=== PATIENT | male | born 1935 | race Caucasian/White ===

== ENCOUNTER 2018-04-30 23:15 | Inpatient (IN) ==
[2018-04-30] MEDS ORDERED: HYDROCODONE/HOMATROPINE SYRUP 5MG/1.5MG 5ML UDP PO STA (23:50)
[2018-04-30] MEDS ORDERED: ALBUT/IPRATROP 3MG/0.5MG NEB 3 ML VIAL NEB ONE (23:50)
[2018-05-01 00:15] LABS: Basophils # (auto) 0.01 K/uL (0-0.2); Basophils % (auto) 0.1 %; Hematocrit (blood only) 42.7 % (42-52); Hemoglobin 14.5 g/dL (14.0-18.0); Immature Granulocytes # (auto) 0.03 K/uL (0.00-0.02); Immature Granulocytes % (auto) 0.3 %; Lymphocytes # (auto) 0.56 K/uL (1.2-3.4); Lymphocytes % (auto) 5.4 %; Mean Corpuscular Volume 97.9 fL (80-100); Mean Platelet Volume 11.1 fL (7.4-10.4); Monocytes % (auto) 6.8 %; Neutrophils # (auto) 8.99 K/uL (1.4-6.5); Neutrophils % (auto) 87.4 %; Platelet Count 151 K/uL (130-400); RDW Coefficient of Variation 12.8 % (11.5-14.5); RDW Standard Deviation 46.1 fL (36.4-46.3); Red Blood Count 4.36 M/uL (4.7-6.1); White Blood Count 10.29 K/uL (4.8-10.8)
[2018-05-01 00:26] LABS: Partial Thromboplastin Time 27.1 Seconds (21.0-31.0); Prothrombin Time 10.5 Seconds (9.0-12.0)
[2018-05-01 00:34] LABS: Alanine Aminotransferase 41 U/L (12-78); Albumin Level 3.8 gm/dl (3.4-5.0); Aspartate Aminotransferase 49 U/L (15-37); BUN Creatinine Ratio 18.2 (10-20); Blood Urea Nitrogen 27 mg/dl (7-18); Calcium 8.8 mg/dl (8.5-10.1); Carbon Dioxide 25 mmol/L (21-32); Chloride 104 mmol/L (98-107); Creatinine Clr Calc Pharmacy 47.7 ml/min; Est GFR (African American) 50.8; Est GFR (Non-African American) 43.8; Glucose 133 mg/dl (70-99); Potassium 4.3 mmol/L (3.5-5.1); Sodium 136 mmol/L (136-145)
[2018-05-01 00:39] LABS: Alkaline Phosphatase 57 U/L (45-117); Bilirubin,Total 0.2 mg/dl (0.2-1); Globulin 3.8 gm/dl (2.5-4.0); NT Pro B Type Natriuretic Pept 429 pg/ml (0-1800); Total Protein 7.6 gm/dl (6.4-8.2); Troponin I < 0.015 ng/ml (0-0.045)
[2018-05-01] MEDS ORDERED: methylPREDNISolone 125 MG/2 ML VIAL IV STA (01:22)
[2018-05-01] MEDS ORDERED: SODIUM CHLORIDE 0.9% 500 ML IV ONE (01:23)
[2018-05-01] MEDS ORDERED: BENZONATATE 100 MG CAPSULE PO PRN (03:56)
[2018-05-01] MEDS ORDERED: EPINEPHRINE ADULT AUTO-INJECT 0.3 MG SYR IM PRN (03:56)
[2018-05-01] MEDS ORDERED: DICYCLOMINE HCL 10 MG CAP PO PRN (03:56)
--- NOTE | 2018-05-01 04:12 | History & Physical Report ---
Date of Service May 01, 2018 Assessment & Plan (1) Hypoxia: Hypoxia/Wheeze/Bronchitis -solumedrol 40 TID -Xopenex david and duoneb prn -Wean oxygen -tessalon -Consider PFTs as outpatient considering extensive prior smoking hx CAD/Hx of CABG -Continue home meds -notably, patient not on ASA Elevated Creatinine -Patient has never been told he has kidney issues, reports good hydration lately -PCP is [facility], unable to access any outpt records/labs to compare -Given 2 x 500cc bolus -Continue to monitor and follow as outpatient HTN -Continue amlodipine GERD -Converted omeprazole to pantoprazole BPH -Continue home meds DVTP: lovenox 30/d CODE: full Dispo: med surg, likely home soon (2) Bronchitis: (3) CAD (coronary artery disease): (4) Hx of CABG: (5) HTN (hypertension): (6) Elevated serum creatinine: (7) BPH (benign prostatic hyperplasia): (8) GERD (gastroesophageal reflux disease): History of Present Illness Chief Complaint: wheeze, coughing spells Primary Care Provider: Gui Marvin Pt is a pleasant 83yo M who presents with 6 day history of severe dry cough and chest congestion. PMH of CAD s/p CABG, GERD, BPH, HTN. He reports 6 days ago he picked up bronchitis from his . He has been having severe coughing spells, so he went to [email or web address] 2 days ago where he was given an inhaler and steroids and tessalon. He did not feel any improvement and in the last 24 hours notes his coughing spells were so severe that he felt he was going to pass out, which prompted him to come to the ER. He is a former smoker with 50+pk yr history, currently smokes a pipe daily but doesn't inhale. Sees PCP [id number] and has never been told he has a lung problem , does not have issues with dyspnea or cough usually. He has been afebrile and reports no other sinusitis type symptoms or sore throat. Does feel tickle in throat and this is worse when lying flat. Reports his GERD is well controlled. In the ER, he was found to be hypoxic and wheezy and was given a breathing treatment, steroids, and cough syrup. Allergies Allergy/AdvReac Type Severity Reaction Status Date / Time bee venom protein (honey bee) Allergy Severe ANAPHYLAXIS Verified 05/01/18 00:08 amoxicillin Allergy Mild RASH Verified 05/01/18 00:08 Home Medications Home Medications Medication Instructions Recorded Confirmed Type albuterol sulfate [Ventolin HFA] 2 puff INHALATION Q4 PRN 05/01/18 05/01/18 History amlodipine 5 mg PO DAILY 05/01/18 05/01/18 History sdninju-xqloeyxpimlzo-eyyeteuv 2 tab PO DIRECTED PRN 05/01/18 05/01/18 History [Excedrin Migraine] aspirin-caffeine [Anacin] 2 tab PO DIRECTED PRN 05/01/18 05/01/18 History benzonatate [Tessalon Perles] 100 mg PO TID PRN 05/01/18 05/01/18 History dicyclomine 10 mg PO DIRECTED PRN 05/01/18 05/01/18 History epinephrine [EpiPen] 0.3 mg IM DIRECTED PRN 05/01/18 05/01/18 History finasteride 5 mg PO DAILY 05/01/18 05/01/18 History minocycline 50 mg PO DAILY 05/01/18 05/01/18 History omeprazole 20 mg PO DAILY 05/01/18 05/01/18 History prednisone 60 mg PO DAILY 05/01/18 05/01/18 History simvastatin 40 mg PO PM 05/01/18 05/01/18 History terazosin 10 mg PO DAILY 05/01/18 05/01/18 History Past Med/Surg History Medical History Anaphylaxis (Acute 10/23/13) CAD (coronary artery disease) (Chronic) GERD (gastroesophageal reflux disease) (Chronic) Anaphylaxis (Acute) Surgical History Hx of CABG (Resolved) Family History Other Family history non-contributory Social History Current Living Situation: Spouse Other Information That Helps Us Care for You: No Feels Safe at Home: Yes Safety Concerns: Feels Safe At This Time Smoking Status: Current every day smoker Tobacco Type: pipe Do You Dip or Chew Tobacco: No Tobacco Cessation Education Requested by Patient: No Hx Alcohol Use: Yes Alcohol type: wine Alcohol Intake Frequency: 0-2 drinks per day Hx Substance Use: No Beliefs That Will Affect Care: None Preferred Language: Maltese Communication Ability: Effective Party Plan Sales Unit Advisor Required: No Review of Systems All systems reviewed & are unremarkable except as noted in HPI & below Constitutional: no fever, no chills and no body aches Respiratory: + cough, + chest congestion and + dyspnea Cardiovascular: + dyspnea, + lightheadedness and + edema; no chest pain and no radiating jaw, neck or arm pain Gastrointestinal: no abdominal pain Genitourinary (Male): + nocturia Physical Exam 2 Vital Signs (Past 24 Hours): Last Vital Signs Temp 37.0 C 04/30/18 23:19 Pulse 96 H 05/01/18 02:46 Resp 17 05/01/18 02:46 BP 134/65 05/01/18 02:46 Pulse Ox 97 05/01/18 02:46 Constitutional: WD/WN, vitals as above + morbidly obese Eyes: PERRL, conjunctivae normal, anicteric sclerae ENMT: external ear and nose normal, oropharynx normal Neck: normal visual inspection Respiratory: + cough; no respiratory distress and no labored breathing Auscultation: + wheezes (diffuse, expiratory) Cardiovascular: Rate/Rhythm: regular rate and regular rhythm Heart Sounds: no murmur Extremities: + edema (2+ ) Gastrointestinal (Abdomen): normal bowel sounds, soft, nontender, no hepatosplenomegaly Percussion/Palpation: + hernia (umbilical) Musculoskeletal: no cyanosis or clubbing, extremities motor strength 5/5 Skin: no rashes, warm and dry Neurologic: PERRL, EOMI, accommodation nl, no face palsy, no dysarthria Psychiatric: A+Ox3, euthymic affect Results & Data Laboratory Results 05/01/18 05/01/18 05/01/18 Range/Units 00:02 00:02 00:02 WBC 10.29 (4.8-10.8) K/uL RBC 4.36 L (4.7-6.1) M/uL Hgb 14.5 (14.0-18.0) g/dL Hct 42.7 (42-52) % MCV 97.9 (80-100) fL MCH 33.3 (25-34) pg MCHC 34.0 (32-36) g/dL RDW Std Deviation 46.1 (36.4-46.3) fL RDW Coeff of Katt 12.8 (11.5-14.5) % Plt Count 151 (130-400) K/uL MPV 11.1 H (7.4-10.4) fL Immature Gran % (Auto) 0.3 % Neut % (Auto) 87.4 % Lymph % (Auto) 5.4 % Throckmorton % (Auto) 6.8 % Eos % (Auto) 0.0 % Baso % (Auto) 0.1 % Immature Gran # (Auto) 0.03 H (0.00-0.02) K/uL Neut # (Auto) 8.99 H (1.4-6.5) K/uL Lymph # (Auto) 0.56 L (1.2-3.4) K/uL Throckmorton # (Auto) 0.70 H (0.11-0.59) K/uL Eos # (Auto) 0.00 (0-0.5) K/uL Baso # (Auto) 0.01 (0-0.2) K/uL PT 10.5 (9.0-12.0) Seconds INR 1.0 (0.9-1.1) APTT 27.1 (21.0-31.0) Seconds PTT Ratio 1.0 Sodium 136 (136-145) mmol/L Potassium 4.3 (3.5-5.1) mmol/L Chloride 104 (98-107) mmol/L Carbon Dioxide 25 (21-32) mmol/L Anion Gap 7.0 (3-11) BUN 27 H (7-18) mg/dl Creatinine 1.47 H (0.6-1.4) mg/dl Est Cr Clr Drug Dosing 47.7 ml/min Est GFR ( Amer) 50.8 Est GFR (Non-Af Amer) 43.8 BUN/Creatinine Ratio 18.2 (10-20) Glucose 133 H (70-99) mg/dl Calcium 8.8 (8.5-10.1) mg/dl Total Bilirubin 0.2 (0.2-1) mg/dl AST 49 H (15-37) U/L ALT 41 (12-78) U/L Alkaline Phosphatase 57 (45-117) U/L Troponin I < 0.015 (0-0.045) ng/ml NT-Pro-B Natriuret Pep 429 (0-1800) pg/ml Total Protein 7.6 (6.4-8.2) gm/dl Albumin 3.8 (3.4-5.0) gm/dl Globulin 3.8 (2.5-4.0) gm/dl Albumin/Globulin Ratio 1.0 (0.9-2) Medications Administered Current Inpatient Medications Amlodipine Besylate (Norvasc) 5 mg PO DAILY [facility] Stop: 05/31/18 08:59 Benzonatate (Tessalon Perle) 200 mg PO TID PRN PRN Reason: Cough Stop: 05/31/18 03:55 Dicyclomine HCl (Bentyl) 10 mg PO DIRECTED PRN PRN Reason: Abdominal Pain Stop: 05/31/18 03:55 Epinephrine HCl (Epipen) 0.3 mg IM DIRECTED PRN PRN Reason: Allergic Reaction Stop: 05/31/18 03:55 Finasteride (Proscar) 5 mg PO DAILY [facility] Stop: 05/31/18 08:59 Non-Formulary Medication (Minocycline [Minocycline]) 50 mg PO DAILY DAVID Stop: 05/31/18 08:59 Simvastatin (Zocor) 40 mg PO PM [facility] Stop: 05/31/18 20:59 Terazosin HCl (Hytrin) 10 mg PO DAILY [facility] Stop: 05/31/18 08:59 Code Status & VTE Plan Code Status full VTE Prophylaxis Plan VTE Prophylaxis will be ordered: Yes Supervising Physician Co-Signing Physician Notes Attending addendum: I have physically seen this patient, have supervised the medical residents activities, and agree with the H&P unless as otherwise noted. Assessment and Plan: Acute respiratory failure with hypoxia/bronchitis with bronchospasm-- Ceftriaxone 1 g IV daily Levofloxacin 500 mg IV every 24 hours Solu-Medrol 40 mg IV every 8 hours Guaifenesin extended release 600 mg by mouth twice a day Xopenex/Atovent nebs q6hwa and q2h prn Nasal cannula 2 L of oxygen titrating to keep pulse ox greater than or equal to 92%. Remainder of orders and notations as noted. Resident Activity Tracking Resident Involvement: Resident Care Provided Care Provided: Adult [facility] Medicine
[2018-05-01] MEDS ORDERED: ALUMINUM/MAGNESIUM SUSP 30 ML UDC PO PRN (05:41)
[2018-05-01] MEDS ORDERED: ONDANSETRON INJ 2 MG/ML 2 ML VIAL IV PRN (05:41)
[2018-05-01] MEDS ORDERED: MAGNESIUM HYDROXIDE SUSP 30 ML UDC PO PRN (05:41)
[2018-05-01] MEDS ORDERED: ACETAMINOPHEN 325 MG TAB PO PRN (05:41)
[2018-05-01] MEDS ORDERED: POLYETHYLENE (MIRALAX) 17 GM PACK PO PRN (05:41)
[2018-05-01] MEDS ORDERED: SODIUM CHLORIDE 0.9% 1000ML 500 ML IV ONE (05:41)
--- NOTE | 2018-05-01 06:04 | Emergency Department Note ---
Entered by Zak Arias acting as a scribe for History of Present Illness General Chief complaint: Shortness of Breath/Dyspnea Stated complaint: ACUTE BRONCHITIS, COUGH Time Seen by Provider: 04/30/18 23:27 Source: patient History of Present Illness Provider complaint: Cough Onset (ago): day(s) 5 Location: chest Radiation: non-radiation Pain Consistency: + constant Relieved By: + other (Water, walking around) Exacerbated By: + other (Lying down) Associated symptoms: + shortness of breath and + other (Dizziness); no fever/ chills The patient is a 83 year old male who presents to the Emergency Room with complaints of a constant dry cough that started about 5 days ago. He has been coughing so much that he gets short of breath to the point where he feels as if he can not breathe, sore abdominal, nauseous and dizzy. He states that walking around and water helps relieve the cough but lying down flat makes it worse. He was at [facility] yesterday where he was diagnosed with bronchitis and given prednisone, albuterol and Tessalon Perles. He also had a chest xray done that came back unremarkable. The patient is a former cigarette smoker and currently smokes a pipe. He has never had an episode like this before but he did have pneumonia a couple of years ago. He also has a history of a CABG of one vessel, GERD, and borderline hypertension. He denies any fever. Home Medications Home Medications Medication Instructions Recorded Confirmed Type albuterol sulfate [Ventolin HFA] 2 puff INHALATION Q4 PRN 05/01/18 05/01/18 History amlodipine 5 mg PO DAILY 05/01/18 05/01/18 History klbxeky-mggxhdqyghpba-xujwozau 2 tab PO DIRECTED PRN 05/01/18 05/01/18 History [Excedrin Migraine] aspirin-caffeine [Anacin] 2 tab PO DIRECTED PRN 05/01/18 05/01/18 History benzonatate [Tessalon Perles] 100 mg PO TID PRN 05/01/18 05/01/18 History dicyclomine 10 mg PO DIRECTED PRN 05/01/18 05/01/18 History epinephrine [EpiPen] 0.3 mg IM DIRECTED PRN 05/01/18 05/01/18 History finasteride 5 mg PO DAILY 05/01/18 05/01/18 History minocycline 50 mg PO DAILY 05/01/18 05/01/18 History omeprazole 20 mg PO DAILY 05/01/18 05/01/18 History prednisone 60 mg PO DAILY 05/01/18 05/01/18 History simvastatin 40 mg PO PM 05/01/18 05/01/18 History terazosin 10 mg PO DAILY 05/01/18 05/01/18 History Allergies Allergy/AdvReac Type Severity Reaction Status Date / Time bee venom protein (honey bee) Allergy Severe ANAPHYLAXIS Verified 05/01/18 00:08 amoxicillin Allergy Mild RASH Verified 05/01/18 00:08 Past Med/Surg History Medical History Anaphylaxis (Acute 10/23/13) CAD (coronary artery disease) (Chronic) GERD (gastroesophageal reflux disease) (Chronic) Anaphylaxis (Acute) Surgical History Hx of CABG (Resolved) Family History Other Family history non-contributory Social History Feels Safe at Home: Yes Smoking Status: Former smoker Review of Systems See HPI for pertinent positives & negatives. and A total of 10 systems reviewed and were otherwise negative Physical Exam Vital Signs Vital Signs - 24 hr 04/30/18 23:19 05/01/18 00:05 05/01/18 00:07 Temperature 37.0 C Temperature Source Oral Sepsis Recent Fever Within 48 Hours No Sepsis Action Taken by Nursing No Action Required Pulse Rate 76 Pulse Rate [Apical] Pulse Rate from SpO2 Sensor Respiratory Rate 18 20 Respiratory Effort / Characteristics Non-Labored Spontaneous Spontaneous Accessory Muscle Use Labored Short of Breath SOB on Exertion Respiratory Depth Normal Respiratory Pattern Regular Blood Pressure 168/98 H Blood Pressure [Left Arm] Blood Pressure Mean 121 Blood Pressure Mean [Left Arm] Blood Pressure Position Sitting Blood Pressure Position [Left Arm] Pulse Oximetry 95 99 99 Oxygen Delivery Method Room Air Nebulizer Nebulizer Oxygen Flow Rate 8 05/01/18 01:13 05/01/18 01:18 05/01/18 01:33 Temperature Temperature Source Sepsis Recent Fever Within 48 Hours Sepsis Action Taken by Nursing Pulse Rate Pulse Rate [Apical] 103 H Pulse Rate from SpO2 Sensor Respiratory Rate 18 Respiratory Effort / Characteristics Non-Labored Respiratory Depth Normal Respiratory Pattern Regular Blood Pressure Blood Pressure [Left Arm] 108/71 Blood Pressure Mean Blood Pressure Mean [Left Arm] 83 Blood Pressure Position Blood Pressure Position [Left Arm] Sitting Pulse Oximetry 96 97 89 L Oxygen Delivery Method Room Air Room Air Room Air Nasal Cannula Oxygen Flow Rate 0 05/01/18 01:41 05/01/18 02:46 05/01/18 04:35 Temperature Temperature Source Sepsis Recent Fever Within 48 Hours Sepsis Action Taken by Nursing Pulse Rate 86 Pulse Rate [Apical] 96 H Pulse Rate from SpO2 Sensor 87 Respiratory Rate 17 21 Respiratory Effort / Characteristics Non-Labored Respiratory Depth Normal Respiratory Pattern Regular Blood Pressure 135/68 Blood Pressure [Left Arm] 134/65 Blood Pressure Mean 90 Blood Pressure Mean [Left Arm] 88 Blood Pressure Position Blood Pressure Position [Left Arm] Sitting Pulse Oximetry 98 97 96 Oxygen Delivery Method Nasal Cannula Nasal Cannula Oxygen Flow Rate 3 3 General: The patient is coughing on exam and appears uncomfortable with auditory wheezing. HEENT: Head - normocephalic and atraumatic Pupils are equal, round, and reactive to light. Extraocular eye muscles are intact, and sclera are anicteric. Nose - moist nasal mucosa without discharge. Mouth - moist buccal mucosa. Oropharynx is nonerythematous and there is no tonsillar exudate or edema noted. Neck: Supple; no JVD, nuchal rigidity, cervical lymphadenopathy. Heart: Regular rate and rhythm. There is a normal S1 and S2 with no murmurs, clicks, or gallops appreciated. Lungs: Inspiratory and expiratory wheezing with no rales, or rhonchi. Abdomen: Soft, completely nontender, nondistended, with good bowel sounds. There are no palpable pulsatile masses or hepatosplenomegaly. There is no guarding, rigidity, or rebound noted. Extremities: No evidence of cyanosis or clubbing. There are easily palpable peripheral pulses. 1+ edema in bilateral lower extremity. Skin: warm and dry with good turgor and no rashes. Course 2330: Past medical records reviewed. The patient was evaluated in room B09, and a complete history and physical examination were performed. An IV lock was initiated and labs were drawn as above. A twelve-lead EKG was obtained as described above. The patient had a chest x-ray as described above. 235: I ordered Albuterol 12ml NEB and Hycodan 10ml PO 0118: I reevaluated the patient and his coughing has improved but he is still wheezing after the hour long nebulizer. 0122: I ordered Solumedrol 125mg IV and Sodium Chloride 500mls @ 999mls/hr IV 0303: I checked on the patient and his cough is better but he is still wheezing dramatically 0310:Dr. Martinez - [facility] Hospitalist was notified about the patient 0417: I spoke to Dr. Martinez's resident and he is going to accept the patient for further evaluation. Consultations Consultation #1: I spoke to Dr. Martinez's resident and he is going to accept the patient for further evaluation. Time: 04:17 Administered Medications Sodium Chloride (Nss 1000ml) 500 mls @ 999 mls/hr IV .Q31M ONE Stop: 05/01/18 06:11 Last Admin: 05/01/18 05:58 Dose: 999 mls/hr Discontinued Medications Albuterol (Duoneb) 12 ml NEB ONE ONE Stop: 04/30/18 23:51 Last Admin: 05/01/18 00:06 Dose: 12 ml Hydrocodone Bit/Homatropine Methylb (Hycodan) 10 ml PO NOW STA Stop: 04/30/18 23:51 Last Admin: 04/30/18 23:59 Dose: 10 ml Sodium Chloride (Nss) 500 mls @ 999 mls/hr IV .Q31M ONE Stop: 05/01/18 01:53 Last Infusion: 05/01/18 01:59 Dose: 0 mls/hr Admin: 05/01/18 01:28 Dose: 999 mls/hr Methylprednisolone (Solumedrol) 125 mg IV NOW STA Stop: 05/01/18 01:23 Last Admin: 05/01/18 01:28 Dose: 125 mg Medical Decision Making Differential Diagnosis The patient is a 83 year old male who presents to the ED with a constant dry cough that started about 5 days ago. Differential diagnosis includes bronchitis , pneumonia, reactive airway disease, CHF, and pertussis, amongst others. Medical Records Attestation: I reviewed the patient's medical records. Home Medications Current Medication List: was personally reviewed by me Laboratory Data Attestation: I reviewed the patient's lab results. Result diagrams: 05/01/18 00:02 05/01/18 00:02 Lab Results 05/01/18 05/01/18 05/01/18 Range/Units 00:02 00:02 00:02 WBC 10.29 (4.8-10.8) K/uL RBC 4.36 L (4.7-6.1) M/uL Hgb 14.5 (14.0-18.0) g/dL Hct 42.7 (42-52) % MCV 97.9 (80-100) fL MCH 33.3 (25-34) pg MCHC 34.0 (32-36) g/dL RDW Std Deviation 46.1 (36.4-46.3) fL RDW Coeff of Katt 12.8 (11.5-14.5) % Plt Count 151 (130-400) K/uL MPV 11.1 H (7.4-10.4) fL Immature Gran % (Auto) 0.3 % Neut % (Auto) 87.4 % Lymph % (Auto) 5.4 % [place] % (Auto) 6.8 % Eos % (Auto) 0.0 % Baso % (Auto) 0.1 % Immature Gran # (Auto) 0.03 H (0.00-0.02) K/uL Neut # (Auto) 8.99 H (1.4-6.5) K/uL Lymph # (Auto) 0.56 L (1.2-3.4) K/uL [place] # (Auto) 0.70 H (0.11-0.59) K/uL Eos # (Auto) 0.00 (0-0.5) K/uL Baso # (Auto) 0.01 (0-0.2) K/uL PT 10.5 (9.0-12.0) Seconds INR 1.0 (0.9-1.1) APTT 27.1 (21.0-31.0) Seconds PTT Ratio 1.0 Sodium 136 (136-145) mmol/L Potassium 4.3 (3.5-5.1) mmol/L Chloride 104 (98-107) mmol/L Carbon Dioxide 25 (21-32) mmol/L Anion Gap 7.0 (3-11) BUN 27 H (7-18) mg/dl Creatinine 1.47 H (0.6-1.4) mg/dl Est Cr Clr Drug Dosing 47.7 ml/min Est GFR ( Amer) 50.8 Est GFR (Non-Af Amer) 43.8 BUN/Creatinine Ratio 18.2 (10-20) Glucose 133 H (70-99) mg/dl Calcium 8.8 (8.5-10.1) mg/dl Total Bilirubin 0.2 (0.2-1) mg/dl AST 49 H (15-37) U/L ALT 41 (12-78) U/L Alkaline Phosphatase 57 (45-117) U/L Troponin I < 0.015 (0-0.045) ng/ml NT-Pro-B Natriuret Pep 429 (0-1800) pg/ml Total Protein 7.6 (6.4-8.2) gm/dl Albumin 3.8 (3.4-5.0) gm/dl Globulin 3.8 (2.5-4.0) gm/dl Albumin/Globulin Ratio 1.0 (0.9-2) Imaging Data Attestation: I personally reviewed and interpreted this imaging study as follows : My Impression: Chest Xray 2V Narrowed mediastinum, no pulmonary infiltrate or consolidation. ECG Data Attestation: I personally reviewed and interpreted this ECG as follows: Indication: SOB/dyspnea Rate (beats per minute): 75 Rhythm: normal sinus Findings: no PAC, no PVC and no acute ischemic change Blood Pressure Blood Pressure Findings: Normal blood pressure Blood Pressure Disposition: further management by hospitalist [facility] Narrative The patient is a 83 year old male who presents to the ED with a constant dry cough that started about 5 days ago. The patient denies any significant history of respiratory illnesses or lung disease. Despite taking the prednisone and albuterol, the patient has persistent nonproductive cough and sleep deprivation. Despite receiving IV Solu-Medrol and an hour-long nebulizer treatment, the patient still has audible wheezes on physical exam and was hypoxic at times. Chest x-ray showed no evidence of pulmonary consolidation or pneumonia. I discussed the case with the [facility] Hospitalist and they will evaluate for further management. Impression & Plan Hypoxia, Bronchitis Discharge Plan Visit Data *Final* Discharge Date/Time: 05/01/18 05:10 Chief Complaint: Shortness of Breath/Dyspnea Stated Complaint: ACUTE BRONCHITIS, COUGH ED Provider: Kay Zamora Discharge Problem: Hypoxia, Bronchitis Patient Disposition: Admitted As Inpatient Discharge Instructions Interventions: ED Discharge Assessment Last Done: 05/01/18 05:10 The scribe's documentation has been prepared under my direction and personally reviewed by me in its entirety. I confirm that the note above accurately reflects all work, treatment, procedures, and medical decision making performed by me.
[2018-05-01] MEDS: LEVALBUTEROL 1.25MG/0.5ML NEB NEB SCH ×3 (07:06→19:19)
--- NOTE | 2018-05-01 07:21 | XRay Report ---
XR chest 2V routine HISTORY: Dyspnea COMPARISON: Chest 10/23/2013. FINDINGS: The heart is normal in size. Poststernotomy changes are again noted. A few linear scarlike densities are seen at the left lung base. The lungs are otherwise clear. No pleural effusions. No pne umothorax. No evidence for pulmonary edema. IMPRESSION: No acute process. Electronically signed by: Mesfin Ortiz M.D. 05/01/2018 7:19 AM
[2018-05-01] MEDS: FINASTERIDE 5 MG TAB PO SCH (07:43)
[2018-05-01] MEDS: PANTOprazole 40 MG TAB PO SCH (07:43)
[2018-05-01] MEDS: TERAZOSIN HCL 5 MG CAP PO SCH (07:44)
[2018-05-01] MEDS: AMLODIPINE BESYLATE 5 MG TAB PO SCH (07:44)
[2018-05-01] MEDS ORDERED: ENOXAPARIN INJ 30 MG/0.3 ML SYR SQ SCH (08:00)
[2018-05-01] MEDS ORDERED: KETOROLAC TROMETHAMINE 15 MG/ML VIAL IV PRN (09:00)
[2018-05-01] MEDS ORDERED: CALCIUM CARBONATE 500 MG CHEWABLE TAB PO PRN (11:04)
[2018-05-01] MEDS: methylPREDNISolone 40 MG in SYRINGE 0 ML IV SCH ×2 (12:04→18:46)
--- NOTE | 2018-05-01 13:19 | Hospitalist Progress Note ---
Date of Service May 01, 2018 Assessment & Plan (1) Hypoxia: - Suspect underlying COPD given his smoking history and should have PFTs when resolved from acute symptoms; This is likely an acute bronchitis as no evidence of PNA and clinically do not suspect influenza - Xopenex DASHAWN nebs with PRN nebs; Tessalon PRN - Solu-Medrol 40 mg TID and likely can convert to PO tomorrow - Has already been weaned to RA at this time Present on Admission?: Yes (2) Bronchitis: - Suspect as underlying diagnosis and likely has a component of COPD - Treatment as above Present on Admission?: Yes (3) CAD (coronary artery disease): - H/O CABG - Simvastatin 40 mg HS; Not on an antiplatelet - can discuss and verify Present on Admission?: Yes (4) HTN (hypertension): - STABLE - Norvasc 5 mg daily Present on Admission?: Yes (5) Elevated serum creatinine: - Unknown baseline but denies urinary issues - Cr at 1.47 and can monitor with AM labs Present on Admission?: Yes (6) BPH (benign prostatic hyperplasia): - Terazosin 10 mg daily and Finasteride 5 mg daily Present on Admission?: Yes (7) GERD (gastroesophageal reflux disease): - Use Protonix 40 mg daily - normally uses Omeprazole and states it really only takes the edge off but lives on TUMs - TUMS PRN (8) DVT prophylaxis: - Lovenox Disposition: Already has been weaned to RA but lungs tight/wheezing. Suspect he could be D/C'd tomorrow if remains on RA with outpatient assessment for COPD Subjective Reports already feeling a little bit better. States his cough is reducing and denies SOB. Was ambulating back from the bathroom when entering the room and did not appear dyspneic. He is tight and wheezing on examination though. He verbalizes no other complaints other than fatigue. Constitutional: + fatigue; no fever, no chills and no weakness Ear, Nose, Mouth, Throat: + hoarseness (mild with some tickling sensations of the throat); no nasal congestion, no sore throat and no dysphagia Respiratory: + cough, + chest congestion and + dyspnea (mild and improving); no sputum production Cardiovascular: + dyspnea; no chest pain and no lightheadedness Gastrointestinal: no abdominal pain, no nausea, no vomiting, no constipation and no diarrhea/loose stools Genitourinary (Male): no dysuria Musculoskeletal: no body aches Integumentary: no rash Physical Exam 2 Vital Signs (Past 24 Hours): Last Vital Signs Temp 36.4 C L 05/01/18 07:17 Pulse 83 05/01/18 07:17 Resp 20 05/01/18 07:17 BP 131/72 05/01/18 07:17 Pulse Ox 91 05/01/18 07:17 Constitutional: WD/WN, vitals as above Eyes: + anicteric sclerae ENMT: Ears: no hearing impairment Mouth: no muffled voice Throat: uvula midline; no posterior oropharynx abnormality Neck: normal visual inspection and trachea midline Respiratory: + cough; no respiratory distress and no labored breathing Auscultation: + diminished lung sounds and + wheezes (diffuse, expiratory) Cardiovascular: Rate/Rhythm: regular rate and regular rhythm Heart Sounds: no murmur Gastrointestinal (Abdomen): Inspection/Auscultation: normal bowel sounds Percussion/Palpation: abdomen soft and + hernia (umbilical); abdomen nontender Musculoskeletal: Head/Neck/Chest: normocephalic, head atraumatic and neck supple Extremities: no cyanosis and no clubbing Skin: no rashes, warm and dry Neurologic: moves all extremities Psychiatric: A+Ox3, euthymic affect
[2018-05-01] MEDS: MINOCYCLINE~ORDER AWAITING ACTION SCH ×2 (15:39→15:48)
[2018-05-01] MEDS: ALBUT/IPRATROP 3MG/0.5MG NEB 3 ML VIAL NEB PRN (19:19)
[2018-05-01] MEDS ORDERED: SIMVASTATIN 40 MG TAB PO SCH (21:00)
[2018-05-02] MEDS: MINOCYCLINE~ORDER AWAITING ACTION SCH ×2 (01:16→08:53)
[2018-05-02] MEDS: ALBUT/IPRATROP 3MG/0.5MG NEB 3 ML VIAL NEB PRN (02:27)
[2018-05-02] MEDS: LEVALBUTEROL 1.25MG/0.5ML NEB NEB SCH ×2 (02:27→06:57)
[2018-05-02] MEDS: methylPREDNISolone 40 MG in SYRINGE 0 ML IV SCH (02:34)
[2018-05-02 06:13] LABS: Basophils # (auto) 0.01 K/uL (0-0.2); Basophils % (auto) 0.1 %; Hematocrit (blood only) 40.6 % (42-52); Hemoglobin 13.2 g/dL (14.0-18.0); Immature Granulocytes # (auto) 0.04 K/uL (0.00-0.02); Immature Granulocytes % (auto) 0.4 %; Lymphocytes # (auto) 0.65 K/uL (1.2-3.4); Lymphocytes % (auto) 6.9 %; Mean Corpuscular Hgb Conc 32.5 g/dL (32-36); Mean Corpuscular Volume 98.5 fL (80-100); Mean Platelet Volume 11.4 fL (7.4-10.4); Monocytes # (auto) 0.54 K/uL (0.11-0.59); Monocytes % (auto) 5.7 %; Neutrophils % (auto) 86.9 %; Platelet Count 135 K/uL (130-400); RDW Coefficient of Variation 13.2 % (11.5-14.5); RDW Standard Deviation 47.7 fL (36.4-46.3); Red Blood Count 4.12 M/uL (4.7-6.1); White Blood Count 9.44 K/uL (4.8-10.8)
[2018-05-02 06:51] LABS: BUN Creatinine Ratio 21.4 (10-20); Calcium 8.3 mg/dl (8.5-10.1); Creatinine Clr Calc Pharmacy 65.5 ml/min; Est GFR (African American) 74.5; Est GFR (Non-African American) 64.3; Potassium 4.1 mmol/L (3.5-5.1)
[2018-05-02] MEDS ORDERED: ENOXAPARIN INJ 40 MG/0.4 ML SYR SQ SCH (08:00)
[2018-05-02] MEDS: AMLODIPINE BESYLATE 5 MG TAB PO SCH (08:52)
[2018-05-02] MEDS: TERAZOSIN HCL 5 MG CAP PO SCH (08:52)
[2018-05-02] MEDS: FINASTERIDE 5 MG TAB PO SCH (08:52)
[2018-05-02] MEDS: PANTOprazole 40 MG TAB PO SCH (08:53)
--- NOTE | 2018-05-02 16:22 | Discharge Summary ---
Date of Service May 02, 2018 Admission HPI Per Admitting Provider Pt is a pleasant 83yo M who presents with 6 day history of severe dry cough and chest congestion. PMH of CAD s/p CABG, GERD, BPH, HTN. He reports 6 days ago he picked up bronchitis from his . He has been having severe coughing spells, so he went to [facility] 2 days ago where he was given an inhaler and steroids and tessalon. He did not feel any improvement and in the last 24 hours notes his coughing spells were so severe that he felt he was going to pass out, which prompted him to come to the ER. He is a former smoker with 50+pk yr history, currently smokes a pipe daily but doesn't inhale. Sees PCP [id number] and has never been told he has a lung problem , does not have issues with dyspnea or cough usually. He has been afebrile and reports no other sinusitis type symptoms or sore throat. Does feel tickle in throat and this is worse when lying flat. Reports his GERD is well controlled. In the ER, he was found to be hypoxic and wheezy and was given a breathing treatment, steroids, and cough syrup. Principal Diagnosis Bronchitis vs. COPD exacerbation Discharge Exam Constitutional WD/WN, vitals as above + morbidly obese Eyes PERRL, conjunctivae normal, anicteric sclerae + anicteric sclerae ENMT external ear and nose normal, oropharynx normal Ears: no hearing impairment Mouth: no muffled voice Throat: uvula midline; no posterior oropharynx abnormality Neck normal visual inspection and trachea midline Respiratory + cough; no respiratory distress and no labored breathing Auscultation: + diminished lung sounds and + wheezes (diffuse, expiratory) Cardiovascular Rate/Rhythm: regular rate and regular rhythm Heart Sounds: no murmur Extremities: + edema (2+ ) Gastrointestinal (Abdomen) normal bowel sounds, soft, nontender, no hepatosplenomegaly Inspection/Auscultation: normal bowel sounds Percussion/Palpation: abdomen soft and + hernia (umbilical); abdomen nontender Musculoskeletal no cyanosis or clubbing, extremities motor strength 5/5 Head/Neck/Chest: normocephalic, head atraumatic and neck supple Extremities: no cyanosis and no clubbing Skin no rashes, warm and dry Neurologic PERRL, EOMI, accommodation nl, no face palsy, no dysarthria moves all extremities Psychiatric A+Ox3, euthymic affect Discharge Data Allergies Allergy/AdvReac Type Severity Reaction Status Date / Time bee venom protein (honey bee) Allergy Severe ANAPHYLAXIS Verified 05/01/18 00:08 amoxicillin Allergy Mild RASH Verified 05/01/18 00:08 Consultations 05/01/18 03:21 ED Decision to Admit Stat Hospital Course (1) Hypoxia: Hypoxia/Wheeze/Bronchitis - Possibly COPD exacerbation as he has long-standing smoking (smokes 1 ppd for years, now smokes a pipe). - Discharged on short course of steroids and with inhaler. - Will follow up with PCP for outpatient PFTs (2) Bronchitis: - Suspect as underlying diagnosis and likely has a component of COPD - Treatment as above (3) CAD (coronary artery disease): - H/O CABG - Simvastatin 40 mg HS - Not on an antiplatelet; defer to PCP (4) Hx of CABG: (5) HTN (hypertension): - STABLE - Norvasc 5 mg daily (6) Elevated serum creatinine: - Patient has never been told he has kidney issues, reports good hydration lately. - PCP is [facility], unable to access any outpt records/labs to compare - On 05/02, Cr was down to 1.07. - Outpatient follow up with BMP in 1-2 weeks. (7) BPH (benign prostatic hyperplasia): - Terazosin 10 mg daily and Finasteride 5 mg daily (8) GERD (gastroesophageal reflux disease): - Use Protonix 40 mg daily - normally uses Omeprazole and states it really only takes the edge off but lives on TUMs - TUMS PRN Total Time Total Time Spent Total Time Spent (In Minutes): 35 Discharge Plan Discharge Items Patient Disposition: Home - Self-Care Reason For Visit: COUGH, WHEEZE Discharge Diagnosis: Bronchitis, possible COPD exacerbation Discharge Goals: Decrease discomfort and Improve function Activity: Resume your previous activity Non-emergency contact: Primary Care Provider and 411 Directory Assistance Operator Call non-emergency contact if: you have any medication questions, your symptoms worsen and your temperature is above 100.5 Follow-up/Referrals: Gui Marvin [Primary Care Provider] - (Please see Dr. Marvin in 1-2 weeks to check in on your breathing.) Diet: Heart Healthy Add Provider Instructions: Mr. Matthews, You were admitted with breathing problems. We gave you breathing treatments and steroids, and within a day or so, you were breathing better. Even on discharge, you had a slight wheeze on expiration, but it was greatly improved. We are discharging you with a few more days of steroids. Please take the steroids for the next 5 days, starting today. Please see your PCP for possible lung testing (PFTs) as you have a significant smoking history which can cause long-term damage to the lungs. Please return to the hospital with any further shortness of breath, cough, wheezing, or other concerning symptoms. Prescriptions: New prednisone 50 mg tablet 50 mg PO DAILY 5 Days Qty: 5 RF: 0 Continue amlodipine 5 mg Tablet 5 mg PO DAILY RF: 0 simvastatin 40 mg Tablet 40 mg PO PM RF: 0 benzonatate [Tessalon Perles] 100 mg Capsule 100 mg PO TID PRN (Reason: Cough) RF: 0 aspirin-caffeine [Anacin] 400-32 mg Tablet 2 tab PO DIRECTED PRN (Reason: Headache) RF: 0 epinephrine [EpiPen] 0.3 mg/0.3 mL Auto-Injector 0.3 mg IM DIRECTED PRN (Reason: Allergic Reaction) RF: 0 terazosin 10 mg Capsule 10 mg PO DAILY RF: 0 dicyclomine 10 mg Capsule 10 mg PO DIRECTED PRN (Reason: Abdominal Pain) RF: 0 finasteride 5 mg Tablet 5 mg PO DAILY RF: 0 [id number] [Excedrin Migraine] 250-250-65 mg Tablet 2 tab PO DIRECTED PRN (Reason: Headache) RF: 0 minocycline 50 mg Tablet 50 mg PO DAILY RF: 0 omeprazole 20 mg Tablet,Delayed Release (Dr/Ec) 20 mg PO DAILY RF: 0 albuterol sulfate [Ventolin HFA] 90 mcg/actuation Hfa Aerosol Inhaler 2 puff INHALATION Q4 PRN (Reason: Shortness Of Breath Or Wheezing) Qty: 6.7 RF: 0 Discontinued prednisone 20 mg Tablet 60 mg PO DAILY RF: 0 Stand-Alone Forms: [facility] Discharge Orders: Discharge Order (Routine); Ordered 05/02/18 Ordered By: Noel Wall Admission Data Admit Date/Time: 05/01/18 04:23 Attending Provider: Noel Wall Admit Provider: Aruna Shirley Primary Care Provider: Gui Marvin Other Providers: Noel Wall Service: Medical Other Interventions: Discharge Summary Assessment (RN) Last Done: 05/02/18 11:18 DC Date/Time DO NOT enter until pt leaves facility: 05/02/18 12:36
== END 2018-05-02 12:36 | disposition home or self-care (01) ==
LOC: ED 23:15 → SUATTDRO 05-01 04:23 → 4W 05-01 04:23